=== PATIENT | female | born 1955 | race Caucasian/White ===

== ENCOUNTER → 2016-08-23 | Outpatient (CLI) | payer BC ==
[~2016-08-23] MED LIST: ASPCH81X PO; CALC-51 PO; CHOL1TAB42 PO; FLAX1CAP11 PO; FMR25 PO; HYZ/50125 PO; MISCCAP80 PO; MULT-506 PO; PROTANDIM PO
[2016-08-23 11:26] LABS: CHOLESTEROL 245 mg/dl (0-200); CHOLESTEROL/HDL RATIO 2.6; HDL CHOLESTEROL 93 mg/dl; TRIGLYCERIDES 141 mg/dl (0-150); VERY LOW DENSITY LIPOPROT CALC 28 mg/dl
== END | disposition home or self-care (01) ==
LOC: C.LAB 09:48
PROVIDERS: ATTEND Internal Medicine
DX: I10 Essential (primary) hypertension (principal); E78.5 Hyperlipidemia, unspecified; M85.80 Other specified disorders of bone density and structure, unspecified site; Z13.89 Encounter for screening for other disorder

== ENCOUNTER → 2017-01-02 | Outpatient (CLI) | payer BC | END | disposition home or self-care (01) | LOC: C.MAMM 07:58 | PROVIDERS: ATTEND Nurse Practitioner Family | DX: C50.919 Malignant neoplasm of unspecified site of unspecified female breast (principal); M85.89 Other specified disorders of bone density and structure, multiple sites ==

== ENCOUNTER → 2017-02-11 | Outpatient (CLI) | payer BC ==
[2017-02-11 18:34] LABS: BLOOD UREA NITROGEN 21 mg/dl (7-18); BUN/CREATININE RATIO 29.4 (10-20); CARBON DIOXIDE 28 mmol/L (21-32); CHLORIDE 103 mmol/L (98-107); GLUCOSE 115 mg/dl (70-99); POTASSIUM 3.4 mmol/L (3.5-5.1); SODIUM 137 mmol/L (136-145)
== END | disposition home or self-care (01) ==
LOC: C.LABSPEC 17:23
PROVIDERS: ATTEND Internal Medicine
DX: Z01.818 Encounter for other preprocedural examination (principal); I10 Essential (primary) hypertension

== ENCOUNTER → 2017-03-31 | Outpatient (CLI) | payer BC | END | disposition home or self-care (01) | LOC: C.PAPS 13:31 | PROVIDERS: ATTEND Obstetrics & Gynecology | DX: Z01.419 Encounter for gynecological examination (general) (routine) without abnormal findings (principal) ==

== ENCOUNTER → 2017-05-21 | Outpatient (CLI) | payer BC | END | disposition home or self-care (01) | LOC: C.PAPS 09:24 | PROVIDERS: ATTEND Physician Assistant | DX: R87.625 Unsatisfactory cytologic smear of vagina (principal) ==

== ENCOUNTER → 2017-06-03 | Outpatient (CLI) | payer BC ==
[2017-06-03 09:37] LABS: BASO % 0.4 %; BASO ABS # 0.02 K/uL (0-0.2); COMPLETE YES; EOS % 5.2 %; HEMATOCRIT 38.3 % (37-47); IG% 0.2 %; LYMPH % 21.3 %; LYMPH ABS # 1.19 K/uL (1.2-3.4); MEAN CELL VOLUME 89.7 fL (80-100); MEAN CORPUSCULAR HEMOGLOBIN 31.4 pg (25-34); MEAN PLATELET VOLUME 9.4 fL (7.4-10.4); MONO % 12.2 %; NEUT % 60.7 %; PLATELET COUNT 244 K/uL (130-400); RED BLOOD COUNT 4.27 M/uL (4.2-5.4); WHITE BLOOD COUNT 5.58 K/uL (4.8-10.8)
[2017-06-03 10:24] LABS: ALT/SGPT 23 U/L (12-78); AST/SGOT 18 U/L (15-37); BLOOD UREA NITROGEN 17 mg/dl (7-18); BUN/CREATININE RATIO 27.5 (10-20); CALCIUM 8.7 mg/dl (8.5-10.1); CARBON DIOXIDE 30 mmol/L (21-32); CHLORIDE 105 mmol/L (98-107); CREATININE 0.62 mg/dl (0.60-1.20); GLUCOSE 99 mg/dl (70-99); POTASSIUM 3.4 mmol/L (3.5-5.1); SODIUM 138 mmol/L (136-145); TRIGLYCERIDES 72 mg/dl (0-150); VERY LOW DENSITY LIPOPROT CALC 14 mg/dl
[2017-06-03 10:25] LABS: ALKALINE PHOSPHATASE 72 U/L (45-117); CHOLESTEROL 196 mg/dl (0-200); CHOLESTEROL/HDL RATIO 2.2; HDL CHOLESTEROL 90 mg/dl
== END | disposition home or self-care (01) ==
LOC: C.LAB 07:44
PROVIDERS: ATTEND Internal Medicine Hematology & Oncology
DX: C50.919 Malignant neoplasm of unspecified site of unspecified female breast (principal); E78.5 Hyperlipidemia, unspecified; E55.9 Vitamin D deficiency, unspecified

== ENCOUNTER 2017-07-01 20:19 | Emergency (ER) | payer BC ==
[~2017-07-01] VITALS: Ht 162.6 cm; Wt 67.0 kg
[2017-07-01 20:38] VITALS: TEMP 36.9; Ht 162.6 cm; Wt 67.0 kg
[2017-07-01] MEDS ORDERED: XYLOCAINE 1%/SOD BICARB 20 ML VIAL INFIL ONE (20:45)
[2017-07-01] MEDS ORDERED: DIPHTHERIA/TETANUS/PERTUSSIS 0.5 ML SYR/VIAL IM. ONE (20:45)
[2017-07-01 22:14] VITALS: BP 145/78; PULSE 64; O2SAT 96
[2017-07-01] MEDS ORDERED: ASPI81TA28 PO (22:20)
[2017-07-01] MEDS ORDERED: POTA1CAP2 PO (22:20)
[2017-07-01] MEDS ORDERED: CALC-393 PO (22:20)
[2017-07-01] MEDS ORDERED: TURM1CAP4 PO (22:20)
--- NOTE | 2017-07-02 00:22 | EMERGENCY ROOM VISIT NOTE ---
History First contact with patient: 20:31 Chief Complaint: LACERATION/CUT (SUT/DERMABOND) Stated Complaint: LACERATION TO THUMB Nursing Triage Summary: Patient ambulatory to triage with an upright and steady gait, states "I was reaching for a spoon out of the dish water. I cut myself on a knife in the sink on my right thumb." History of Present Illness The patient is a 61 year old female who presents to the Emergency Room with complaints of a laceration to the right thumb. The patient reports that she was reaching into her kitchen sink for a spoon that fell into the trash compactor. It kicked back and flipped a knife into her thumb, causing laceration. The patient denies any significant bleeding, and rates her discomfort a 3 out of 10. She denies any paresthesias or numbness of the fingertip. The patient is [id number]. Review of Systems 6 system review was performed and was negative except for pertinent positives and negatives as indicated in history of present illness Past Medical/Surgical History Medical Problems: (1) Breast cancer (2) DCIS (ductal carcinoma in situ) of breast (3) Melanoma Family History Unremarkable Social History Smoking Status: Former Smoker Alcohol Use: occasionally Marital Status: Occupation Status: employed Current/Historical Medications Scheduled Aspirin (Aspirin Ec), 81 MG PO DAILY Calcium Carbonate (Calcium), 600 MG PO BID Cholecalciferol (Vitamin D), 5,000 INTER.UNIT PO QAM Flaxseed (Linseed) (Flax Seed Oil), 1 CAP PO QAM Hctz/Losartan (Hyzaar 12.5MG/50MG), 1 TAB PO QAM Letrozole (Femara), 2.5 MG PO QAM Multivitamin (Multivitamin), 1 TAB PO QAM Potassium Chloride (Potassium Chloride Er), 1 CAP PO BID Turmeric (Curcuma Longa) (Turmeric), 500 MG PO DAILY Physical Exam Vital Signs Date Time Temp Pulse Resp B/P (MAP) Pulse Ox O2 Delivery O2 Flow Rate FiO2 07/01/17 22:14 64 18 145/78 96 Room Air 07/01/17 20:38 36.9 76 20 143/83 97 Room Air Physical Exam CONSTITUTIONAL: Healthy and well nourished. Alert and oriented X 3 with positive affect. MUSCULOSKELETAL: Examination of the right thumb shows a 2.5 cm curvilinear laceration without active bleeding. The laceration does not involve the nail. Capillary refill is less than 2 seconds. INTEGUMENTARY: No rash or other significant dermatologic conditions noted. NEUROLOGIC: Right thumb tip is sensory intact. Medical Decision & Procedures Medications Administered Medications (Trade) Dose Ordered Sig/Scooter Route Start Time Stop Time Status Last Admin Dose Admin Diphtheria/ Pertussis/Tetanus Vacc (Adacel Inj) 0.5 ml ONCE ONCE IM. 07/01/17 20:45 07/01/17 20:46 DC 07/01/17 21:07 0.5 ML Procedure Laceration repair was performed under digital block anesthesia after receiving verbal consent from the patient. Using buffered 1% lidocaine without epinephrine, good digital block anesthesia was administered. The wound was then peripherally cleansed with iodine, then irrigated with normal saline. Exploration of the wound does not show any obvious involvement of the underlying bone. The wound was then approximated using 5-0 nylon simple interrupted sutures. A bacitracin dressing was applied. The patient tolerated the procedure well with minimal bleeding. ED Course Patient history and physical exam were performed. Nurse's notes were reviewed. Vital signs were reviewed and were normal. The patient was administered Adacel IM. Laceration repair was performed under digital block anesthesia. The patient was provided additional verbal and written wound care instructions. Ice and elevation as needed for swelling. Ibuprofen or Tylenol if needed for additional pain relief. Suture removal in 2 weeks, or seek reevaluation sooner for any signs of wound infection. The patient was happy with plan of care, voiced understanding of all discharge instructions, and denied any pain at the conclusion of my exam. Medical Decision Medication Reconcilliation Current Medication List: was personally reviewed by me Blood Pressure Screening Patient's blood pressure: Normal blood pressure Impression Primary Impression: Laceration of right thumb Departure Information Dispostion Home / Self-Care Condition GOOD Forms HOME CARE DOCUMENTATION FORM, IMPORTANT VISIT INFORMATION Patient Instructions [facility] Additional Instructions Keep wound clean and dry. Do not allow any crusting or dried blood to accumulate on sutures. If this occurs, use a 1:1 solution of hydrogen peroxide/ water on a Q-tip to clean the wound. Use an antibiotic ointment for 3-4 days, then let wound dry. Suture removal in 12-14 days. Return sooner for any signs of infection (increasing redness, swelling, drainage). Ice and elevate for swelling and pain. Ibuprofen 600 mg and/or Tylenol 1000 mg every 6-8 hrs as needed for pain. Problem Qualifiers Primary Impression: Laceration of right thumb Encounter type: initial encounter Damage to nail status: without damage Foreign body presence: without foreign body Qualified Codes: S61.011A - Laceration without foreign body of right thumb without damage to nail, initial encounter
== END 2017-07-01 22:16 | disposition home or self-care (01) ==
LOC: C.EDB 20:20 → C.EDD 22:16
DX: S61.011A Laceration without foreign body of right thumb without damage to nail, initial encounter (principal); W26.0XXA Contact with knife, initial encounter; Z23 Encounter for immunization; Z85.3 Personal history of malignant neoplasm of breast; Z85.820 Personal history of malignant melanoma of skin; Z87.891 Personal history of nicotine dependence; Z79.82 Long term (current) use of aspirin

== ENCOUNTER → 2017-07-18 | Outpatient (CLI) | payer BC ==
[~2017-07-18] MED LIST changes: -ASPCH81X PO; +ASPI81TA28 PO; +CALC-393 PO; -CALC-51 PO; -MISCCAP80 PO; +POTA1CAP2 PO; -PROTANDIM PO; +TURM1CAP4 PO
--- NOTE | 2017-07-18 15:29 | DIAGNOSTIC IMAGING REPORT ---
TWO VIEW CHEST CLINICAL HISTORY: Cough. FINDINGS: PA and lateral chest radiographs are correlated with chest CT dated 04/07/2015. The cardiomediastinal silhouette is unremarkable. Chronic interstitial thickening similar to previous. The lungs and pleural spaces are clear. There is no pneumothorax. The skeletal structures are osteopenic. The bony thorax appears intact. Bilateral breast implants are noted. Surgical clips are noted in the left axilla. IMPRESSION: No active disease in the chest. Electronically signed by: Aníbal Julien M.D. 07/18/2017 3:27 PM Dictated Date/Time: 07/18/2017 3:25 PM
== END | disposition home or self-care (01) ==
LOC: C.RAD 15:01
PROVIDERS: ATTEND Dermatology
DX: R05 Cough (principal)

== ENCOUNTER → 2017-08-18 | Outpatient (CLI) | payer BC | END | disposition home or self-care (01) | LOC: C.RDSM 09:45 | PROVIDERS: ATTEND Physical Medicine & Rehabilitation Sports Medicine | DX: M17.0 Bilateral primary osteoarthritis of knee (principal) ==

== ENCOUNTER 2017-10-15 06:28 | Inpatient (IN) | payer BC ==
[2017-10-06 10:04] VITALS: BMI 26.0
--- NOTE | 2017-10-06 10:52 | PAT Medication Instructions ---
Service Date Oct 06, 2017. Current Home Medication List Aspirin (Aspirin Ec), 81 MG PO QPM Calcium Carbonate (Calcium), 600 MG PO BID Cholecalciferol (Vitamin D), 5,000 INTER.UNIT PO QAM Fish Oil ([place]-3), 1 CAP PO QAM Flaxseed (Linseed) (Flax Seed Oil), 1 CAP PO QAM Hctz/Losartan (Hyzaar 12.5MG/50MG), 1 TAB PO QAM Letrozole (Femara), 2.5 MG PO QAM Multivitamin (Multivitamin), 1 TAB PO QAM Potassium Chloride (Potassium Chloride Er), 1 CAP PO BID Turmeric (Curcuma Longa) (Turmeric), 500 MG PO QPM Medication Instructions For Your Scheduled Surgery -Check with your prescriber for instructions for: Letrozole (Femara), 2.5 MG PO QAM - Hold the following medications 2 weeks prior to surgery: Fish Oil ([place]-3), 1 CAP PO QAM Flaxseed (Linseed) (Flax Seed Oil), 1 CAP PO QAM Turmeric (Curcuma Longa) (Turmeric), 500 MG PO QPM - Hold the following medications the morning of surgery: Calcium Carbonate (Calcium), 600 MG PO BID Cholecalciferol (Vitamin D), 5,000 INTER.UNIT PO QAM Hctz/Losartan (Hyzaar 12.5MG/50MG), 1 TAB PO QAM Multivitamin (Multivitamin), 1 TAB PO QAM Potassium Chloride (Potassium Chloride Er), 1 CAP PO BID - Take the following medications as scheduled the night before surgery: Aspirin (Aspirin Ec), 81 MG PO QPM Calcium Carbonate (Calcium), 600 MG PO BID Potassium Chloride (Potassium Chloride Er), 1 CAP PO BID If you have any questions please call us at [phone] or [phone] or [phone]
[2017-10-06 11:12] LABS: BASO % 0.8 %; BASO ABS # 0.05 K/uL (0-0.2); EOS % 8.6 %; EOS ABS # 0.52 K/uL (0-0.5); HEMATOCRIT 39.8 % (37-47); HEMOGLOBIN 13.9 g/dL (12.0-16.0); LYMPH % 28.9 %; LYMPH ABS # 1.74 K/uL (1.2-3.4); MEAN CELL VOLUME 88.4 fL (80-100); MEAN CORPUSCULAR HEMOGLOBIN 30.9 pg (25-34); MEAN CORPUSCULAR HGB CONC 34.9 g/dl (32-36); MEAN PLATELET VOLUME 9.2 fL (7.4-10.4); MONO ABS # 0.48 K/uL (0.11-0.59); NEUT % 53.7 %; NEUT ABS # 3.23 K/uL (1.4-6.5); PLATELET COUNT 275 K/uL (130-400); RED CELL DISTRIBUTION WIDTH CV 13.5 % (11.5-14.5); RED CELL DISTRIBUTION WIDTH SD 43.6 fL (36.4-46.3); WHITE BLOOD COUNT 6.02 K/uL (4.8-10.8)
[2017-10-06 11:20] LABS: PTT PATIENT 25.2 SECONDS (21.0-31.0)
[2017-10-06 11:21] LABS: CALCIUM 9.2 mg/dl (8.5-10.1); CREATININE 0.62 mg/dl (0.60-1.20); POTASSIUM 3.5 mmol/L (3.5-5.1)
--- NOTE | 2017-10-13 15:42 | HISTORY & PHYSICAL EXAMINATION ---
DATE OF ADMISSION: 10/15/2017 CHIEF COMPLAINT: Left knee pain. HISTORY OF PRESENT ILLNESS: This 61-year-old white female presents with complaints of left knee pain that has been ongoing for several years. It has become worse with time. She states she did try physical therapy as well as viscosupplementation without lasting improvement. Pain persists. It is worse with weightbearing. It is affecting her ADLs. She elects to proceed with surgical intervention in hopes of alleviating her pain. Preoperative imaging has been obtained. No specific trauma. Pain is primarily medial. She does note some nighttime pain. No intraarticular effusions. PAST MEDICAL HISTORY: Significant for hypertension, osteoarthritis, history of melanoma, breast cancer, trigger digits, heartburn, and elevated cholesterol. PREVIOUS SURGERIES: Right foot fusion, right foot bone spur excision, double mastectomy, melanoma excision, right rotator cuff repair. ALLERGIES: NKDA. CURRENT MEDICATIONS: Amlodipine 5 mg p.o. daily, aspirin 81 mg p.o. daily, calcium daily, fish oil daily, Femara daily, HCTZ/losartan 25 mg/100 mg p.o. daily, Klor-Con 10 mEq daily, multivitamin daily, Vitamin D3 daily. FAMILY HISTORY: Significant for breast cancer, skin cancer, ovarian cancer, heart disease, hypertension, and lung cancer. SOCIAL HISTORY: The patient is . No tobacco use, quit in 2012. Occasional ETOH use. REVIEW OF SYSTEMS: Significant for above-stated conditions, otherwise unremarkable. PHYSICAL EXAMINATION: GENERAL: Well-developed, well-nourished middle-aged white female, in no acute distress. Looks younger than her stated age. Sitting on a bed. Alert and oriented. SKIN: Warm and dry with good turgor. No rashes or lesions. No ecchymosis or erythema. No intraarticular effusion. HEENT: Normocephalic, atraumatic. EYES: PERRLA. EOMI. Nares patent bilaterally without turbinate enlargement. Oropharynx without erythema or exudate. No lesions noted. Uvula midline. Oral mucosa moist. Good dentition. HEART: RRR. No MGR. LUNGS: Clear to auscultation bilaterally. No crackles, rhonchi or wheezing. Good air movement. ABDOMEN: Mildly obese. Bowel sounds present x4, soft, nontender. No organomegaly. No masses. MUSCULOSKELETAL: Left knee has no intra-articular effusion. No redness or warmth. Supple motion. Full terminal extension. Flexion to greater than 100 degrees. She has focal discomfort with palpation over the medial joint line. There is also peripatellar discomfort. No lateral joint line discomfort today. Stable collateral ligaments. No defect in the patellar tendon or quadriceps tendon. Ambulatory with a normal gait. NEUROLOGIC: Gross sensation is intact across both lower extremities by soft touch. Peripheral pulses are 2+. Cranial nerves II-XII are intact. DATA: Radiographic imaging previously obtained shows lateral subluxation as well as patellofemoral arthritis. Periarticular osteophytes and medial joint space narrowing are present. Subchondral sclerosis is also present. IMPRESSION: Left knee degenerative joint disease. PLAN: Postoperative prescriptions for Percocet and Coumadin will be provided at discharge from the hospital. Anticipate discharge to home with home health services for 2 weeks and then outpatient PT. She already has a walker. Preoperative lab work, EKG, and chest x-ray have been ordered. Medical clearance was requested from her PCP, Dr. Quiñones.
[2017-10-15] VITALS (8 sets, daily range): BP systolic 96–124; BP diastolic 61–95; PULSE 53–75; TEMP 36.4–36.8; O2SAT 96–100; Ht 162.6 cm; Wt 68.4 kg
[~2017-10-15] VITALS: Ht 162.6 cm; Wt 68.4 kg
[~2017-10-15 06:28] MED LIST changes: +CEFAZOLIN 2000MG IV PUSH 15 ML IV SCH; +LACTATED RINGER'S 1000ML 1,000 ML IV SCH; +LACTATED RINGER'S 1000ML IV SCH; +OMEG10007 PO; +ROPIVACAINE 5MG/ML 30 ML 150 MG, BUPIVACAINE 0.5% MPF INJ 30 ML, EpINEphrine HCL INJ 0.... INFIL SCH; +TRANEXAMIC ACID INJ 1,000 MG x 1 Bag Preop IV SCH
[2017-10-15] MEDS ORDERED: ROPIVACAINE 0.5% 5 MG/ML 30 ML VIAL ONE (06:36)
[2017-10-15] MEDS ORDERED: BUPIVACAINE 0.5 % 5 MG/1 ML PF 10ML VIAL ONE (06:36)
--- NOTE | 2017-10-15 06:50 | History & Physical Bridge Note ---
H&P Re-Evaluation Bridge Note: I have examined the patient, reviewed the History & Physical and in the interval since the performance of the History & Physical I have noted the following changes of clinical significance: consent obtained.No changes noted
[2017-10-15] MEDS ORDERED: LIDOCAINE HCL 2% 2 ML VIAL (20MG/ML) ONE (07:16)
[2017-10-15] MEDS ORDERED: PROPOFOL IV EMULSION 10 MG/ML 20 ML VIAL IV ONE ×2 (07:16→10:00)
[2017-10-15] MEDS ORDERED: MIDAZOLAM HCL 1 MG/ML 2ML VIAL ONE ×2 (07:17→09:02)
[2017-10-15] MEDS ORDERED: FENTANYL CITRATE INJ 50 MCG/1 ML 2 ML VIAL ONE (07:17)
[2017-10-15] MEDS ORDERED: POVIDONE-IODINE OP SOLN 30 ML BTL ONE (08:38)
[2017-10-15] MEDS ORDERED: ORTHO JOINT ANESTHETIC ONE (08:38)
[2017-10-15] MEDS ORDERED: ONDANSETRON INJ 2 MG/ML 2 ML VIAL ONE (09:39)
--- NOTE | 2017-10-15 10:24 | [facility] Post Operative Brief Note ---
Immediate Operative Summary Operative Date Oct 15, 2017. Pre-Operative Diagnosis Left Knee Degenerative Joint Disease Post-Operative Diagnosis Left Knee Degenerative Joint Disease Procedure(s) Performed Left Total Knee Arthroplasty Surgeon [facility] Coordinator Surgeon(s) Dr. Guzman (Fellow)/BIRD Casanova Estimated Blood Loss 50 ml Findings Consistent with Post-Op Diagnosis Fluids (cc crystalloids) 1300cc Specimens A. Left Knee Bone and Tissue Drains None Anesthesia Type MAC Spinal Regional Complication(s) none Disposition Accompanied Pt To Recover: no Disposition: Recovery Room / PACU
--- NOTE | 2017-10-15 10:43 | [facility] Operative Report ---
Operative Report Operative Date Oct 15, 2017. Pre-Operative Diagnosis Left Knee Degenerative Joint Disease Post-Operative Diagnosis Left Knee Degenerative Joint Disease Procedure(s) Performed Left Total Knee Arthroplasty Surgeon Dr. Melendez Colli[facility] Clerk Surgeon(s) Dr. Guzman (Fellow)/BIRD Fiore Estimated Blood Loss 50 ml Findings Left knee DJD Fluids 1300cc Specimens A. Left Knee Bone and Tissue Drains None Anesthesia Type MAC Spinal Regional Complication(s) none Disposition no Recovery Room / PACU Indications This 61-year-old white female presented to the office with complaints of intractable left knee pain. She had tried conservative care measures including oral anti-inflammatories, cortisone injections, Visco supplementation, and activity modification, without improvement. She elected to proceed with surgical intervention after being educated about potential risks and outcomes. Preoperative imaging was obtained. Description of Procedure Patient was given a spinal anesthetic and then taken to the operating room where she was given sedation. She was prepped and draped in usual sterile fashion. Please see Dr. Melendez's operative report for specifics of the procedure. I was present for the entire case from initial patient positioning through final wound closure. Assistance was provided in tissue retraction, hemostasis, trial implant placement, final implant placement, and final wound closure. Patient was taken to the recovery room in satisfactory condition. I attest to the content of the Intraoperative Record and any orders documented therein. Any exceptions are noted below.
[2017-10-15] MEDS ORDERED: ACETAMINOPHEN IV 100 ML IV PRN (10:45)
[2017-10-15] MEDS ORDERED: ONDANSETRON INJ 2 MG/ML 2 ML VIAL IV PRN ×2 (10:45→11:15)
[2017-10-15] MEDS ORDERED: MoRPHine SULFATE 2 MG/ML CARP IV PRN (10:45)
[2017-10-15] MEDS ORDERED: BISACODYL 10 MG SUPP PR PRN (10:45)
[2017-10-15] MEDS ORDERED: METOCLOPRAMIDE HCL INJ 5 MG/ML 2 ML VIAL IV PRN (10:45)
[2017-10-15] MEDS ORDERED: MAGNESIUM HYDROXIDE SUSP 30 ML UDC PO PRN (10:45)
[2017-10-15] MEDS ORDERED: ALUMINUM/MAGNESIUM/SIMETH (MAALOX MAX) 30 ML UDC PO PRN (10:45)
--- NOTE | 2017-10-15 10:58 | DIAGNOSTIC IMAGING REPORT ---
TWO VIEWS LEFT KNEE CLINICAL HISTORY: Postoperative examination. FINDINGS: AP and crosstable lateral portable views of the left knee are obtained. A left knee arthroplasty is in near anatomic alignment. There has been undersurface remodeling of the patella. No acute fracture is seen. There are expected postoperative changes around the knee including skin clips, soft tissue edema, and subcutaneous gas. IMPRESSION: Expected postoperative changes status post left knee arthroplasty. No acute fracture is seen. Electronically signed by: Aníbal Julien M.D. 10/15/2017 10:57 AM Dictated Date/Time: 10/15/2017 10:57 AM
--- NOTE | 2017-10-15 10:59 | OPERATIVE REPORT ---
DATE OF OPERATION: 10/15/2017 SURGEON: Dionisio Melendez MD WEATHER ANALYST: Thomas SECOND TRIAGE LICENSED PRACTICAL NURSE: Brayden Horton PA-C PREOPERATIVE DIAGNOSIS: Osteoarthritis of left knee, primary component, patellofemoral, and lateral compartment. POSTOPERATIVE DIAGNOSIS: Osteoarthritis of left knee, primary component, patellofemoral, and lateral compartment. OPERATION PERFORMED: Cemented left total knee replacement. SUMMARY OF IMPLANTS: Size 2 left posterior cruciate substituting femur, size 2 rotating tibial platform tray, size 2 insert, 10 mm thick posterior cruciate substituting oval dome 3 peg patella size 35, 2 bags of Palacos G cement. ESTIMATED BLOOD LOSS: 50 mL. CRYSTALLOID: 1300 mL. DVT PROPHYLAXIS: With Coumadin. PATHOLOGY: Bone pathology pending. PERIOPERATIVE SITUATION: A medically cleared female with intractable knee pain, has been followed for decades, at this point in time, wants to proceed with surgical treatment. X-rays reveal end-stage disease particularly patellofemoral joint and lateral compartment. OPERATION: The patient was appropriately identified, site verified, consent verified, 2 g of Ancef confirmed as being given. The left lower extremity was prepped and draped in usual routine fashion. There was no major flexion contracture. The tourniquet was inflated to 300 mmHg after exsanguination of limb with a rubber Esmarch bandage for a total of about 55 minutes. Midline exposure utilized. Parapatellar arthrotomy was performed. Osteophytes were resected. Synovectomy was completed. Grade 4 disease of the entire patella and trochlea, grade 3 disease of the entire lateral compartment with a grade 4 spot on the weightbearing surface of both the tibia and the femur. The medial compartment was relatively healthy. The distal femur was then entered on the centralizing drill bit after the cruciates were resected. The tibia was subluxatable. The distal femur was then resected 12 mm. The proximal tibia was resected 4 mm. The extension gap was excellent. The femur was sized between a 2.5 and 2, so it was measured 2.5, cut 2. There was no notching. This did require one revision of the chamfer cut to get the trial implant to fit later on. The flexion gap was excellent. The box cut was then made and the size 2 trial wound not quite fit well, so the chamfer cut was revised and then the size 2 trial fit very well. The tibia was subluxated and then sized to a 2 and was broached and reamed for a size 2 with appropriate rotation. Then the 10 mm spacer fit well and had excellent extension, mid range, and full flexion stability. The patella tracked well. The patella was sized to a 35 and was resected leaving about 15 mm. The seating holes made and the trial tracked and fit well. The area was then injected with the Orthomix. The wound was then irrigated with Betadine. All the implants were removed, irrigated with Betadine Pulsavac, and then the permanents cemented into position. After 12 minutes, the tourniquet deflated. After 14 minutes, the knee flexed. No cement needed to be removed. The wound was irrigated with Betadine Pulsavac and the permanent liner seated. The knee was reduced and closed with #2 Vicryl, #1 Vicryl, 2-0 Vicryl, and stainless steel clips. Appropriate dressing was applied. The patient was transferred to recovery room in satisfactory condition having tolerated the procedure well. DVT prophylaxis with Coumadin. I attest to the content of the Intraoperative Record and any orders documented therein. Any exception s are noted below.
[2017-10-15] MEDS ORDERED: EpHEDrine SULFATE INJ 50 MG/ML AMP IV PRN (11:15)
[2017-10-15] MEDS ORDERED: LABETALOL HCL IV 5 MG/ML 20ML IV PRN (11:15)
[2017-10-15] MEDS ORDERED: MEPERIDINE HCL 25 MG/ML CARP IV PRN (11:15)
[2017-10-15] MEDS ORDERED: ATROPINE SULFATE 0.1 MG/ML 5ML SYR IV PRN (11:15)
[2017-10-15] MEDS ORDERED: HYDROmorphone INJ 0.5 MG/0.5 ML SYR IV PRN (11:15)
[2017-10-15] MEDS ORDERED: FENTANYL CITRATE INJ 50 MCG/1 ML 2 ML VIAL IV PRN (11:15)
--- NOTE | 2017-10-15 11:22 | PROGRESS NOTE ---
DATE: 10/15/2017 Postop status post left total knee replacement. The patient seen in the PACU area. She is comfortable. Her block is still in place. Wound dressing clean, dry and intact. Denies chest pain, shortness of breath, fever, chills, nausea, vomiting or headache. Postop x-rays, AP and lateral knee look excellent. ASSESSMENT: Doing well with left knee replacement. Continue care pathway. Mobilize JASPREET.
[2017-10-15] MEDS ORDERED: D5W AND 1/2NSS + 20MEQ KCL 1,000 ML IV SCH (12:15)
[2017-10-15] MEDS ORDERED: MoRPHine SULFATE 4 MG/ML 1 ML CARP\\VIAL IV PRN (12:15)
--- NOTE | 2017-10-15 12:31 | Anesthesiology Progress Note ---
Anesthesia Post Op Note Date & Time Oct 15, 2017 at 12:30 Vital Signs Pain Intensity: 0.0 Vital Signs Past 12 Hours Date Time Temp Pulse Resp B/P (MAP) Pulse Ox O2 Delivery O2 Flow Rate FiO2 10/15/17 12:15 36.5 53 15 119/76 (90) 100 Nasal Cannula 2.0 10/15/17 11:35 36.4 64 18 96/61 (73) 99 Nasal Cannula 2.0 10/15/17 11:35 Nasal Cannula 2.0 10/15/17 11:35 Room Air 10/15/17 11:20 36.5 56 16 95/56 97 Nasal Cannula 2 10/15/17 11:10 36.5 57 14 95/59 99 Nasal Cannula 2 10/15/17 11:00 53 14 94/56 97 Nasal Cannula 2 10/15/17 10:50 56 20 92/58 96 Nasal Cannula 2 10/15/17 10:40 66 16 96/58 98 Nasal Cannula 2 10/15/17 10:34 36.4 66 16 98/50 98 Nasal Cannula 2 10/15/17 07:17 36.8 60 18 124/95 97 Room Air Notes Mental Status: alert / awake / arousable, participated in evaluation Pt Amnestic to Procedure: Yes Nausea / Vomiting: adequately controlled Pain: adequately controlled Airway Patency, RR, SpO2: stable & adequate BP & HR: stable & adequate Hydration State: stable & adequate Neuraxial Anesthesia: was administered, sensory block is resolving Anesthetic Complications: no major complications apparent
[2017-10-15] MEDS: FERROUS GLUCONATE 324 MG TAB PO SCH ×2 (14:07→17:32)
[2017-10-15] MEDS: KETOROLAC TROMETHAMINE 15 MG/ML VIAL IV. SCH ×2 (14:08→20:33)
[2017-10-15] MEDS: ACETAMINOPHEN 500 MG TAB PO SCH ×2 (14:08→21:32)
[2017-10-15] MEDS ORDERED: WARFARIN SOD 5 MG TAB PO SCH (16:00)
[2017-10-15] MEDS ORDERED: TRANEXAMIC ACID INJ 1,000 MG in SODIUM CHLORIDE 0.9% 100ML 100 ML IV SCH (16:30)
[2017-10-15] MEDS: CEFAZOLIN IV 1,000 MG in SYRINGE 0 ML IV SCH (17:18)
--- NOTE | 2017-10-15 19:31 | PROGRESS NOTE ---
DATE: 10/15/2017 Postop check, doing well, status post left total knee. Eating well. Denies chest pain, shortness of breath, fever, chills, nausea, vomiting or headache. Neurovascular check is normal. Has good motor function. Good sensory function. Continue with care pathway. Hep-Lock IV.
[2017-10-15] MEDS: POTASSIUM CHLORIDE 10 MEQ TABCR PO SCH (20:33)
[2017-10-15] MEDS: DOCUSATE SODIUM 100 MG CAP PO SCH (20:33)
[2017-10-15] MEDS ORDERED: SENNA 8.6 MG TAB PO SCH (21:00)
[2017-10-16] MEDS: CEFAZOLIN IV 1,000 MG in SYRINGE 0 ML IV SCH (01:36)
[2017-10-16] MEDS: KETOROLAC TROMETHAMINE 15 MG/ML VIAL IV. SCH ×3 (01:36→12:53)
[2017-10-16 03:10] VITALS: BP 102/65; PULSE 60; TEMP 36.7; O2SAT 99
[2017-10-16] MEDS: ACETAMINOPHEN 500 MG TAB PO SCH ×2 (05:22→12:55)
[2017-10-16] MEDS: OXYCODONE HCL IR 5 MG TAB (IMMEDIATE RELEASE) PO PRN ×2 (05:22→13:20)
[2017-10-16 06:47] LABS: HEMATOCRIT 33.6 % (37-47); HEMOGLOBIN 11.4 g/dL (12.0-16.0); MEAN CELL VOLUME 88.4 fL (80-100); MEAN CORPUSCULAR HGB CONC 33.9 g/dl (32-36); MEAN PLATELET VOLUME 9.3 fL (7.4-10.4); PLATELET COUNT 224 K/uL (130-400); RED CELL DISTRIBUTION WIDTH CV 13.1 % (11.5-14.5); RED CELL DISTRIBUTION WIDTH SD 42.2 fL (36.4-46.3); WHITE BLOOD COUNT 9.96 K/uL (4.8-10.8)
[2017-10-16] MEDS ORDERED: DEXAMETHASONE INJ 10 MG in SYRINGE 0 ML IV ONE (07:30)
[2017-10-16 07:31] LABS: CALCIUM 8.5 mg/dl (8.5-10.1); CREATININE 0.64 mg/dl (0.60-1.20); POTASSIUM 3.5 mmol/L (3.5-5.1)
[2017-10-16 07:58] VITALS: BP 116/76; PULSE 56; TEMP 36.7; O2SAT 98
[2017-10-16] MEDS ORDERED: WARF2TAB PO (08:18)
[2017-10-16] MEDS ORDERED: OXYC-57 PO (08:18)
--- NOTE | 2017-10-16 08:21 | Discharge Instructions ---
Discharge Instructions Date of Service Oct 16, 2017. Admission Reason for Admission: Left Knee Degenerative Joint Disease Discharge Discharge Diagnosis / Problem: left knee s/p total knee replacement Discharge Goals Goal(s): Decrease discomfort, Improve function, Increase independence Activity Recommendations Activity Limitations: as noted below Lifting Limitations: gradually increase as tolerated Exercise/Sports Limitations: until after follow-up appointment Shower/Bathe: keep incision dry Driving or Machine Use: No driving until cleared by Dr. Melendez Weightbearing Status: Left weightbearing (as tolerated) . Instructions / Follow-Up Instructions / Follow-Up New Medicine: * You will likely be taking one or more of these medications: 1. Percocet - Take, as directed, when you need it, every four to six hours to control your pain. 2. Coumadin - Thins your blood to lessen the chance of forming a blood clot. The dose of this is different for each person and is based on your blood tests that are done twice a week. * The most common side effects of pain medicine and iron are nausea and constipation. If nausea or constipation is too much of a problem or if you have any questions about your new medicines or doses, call [facility] at . We will try to help you manage these issues. VERY IMPORTANT TO READ AND REVIEW" Blood Clots and Blood Thinning Medicine: * You are given Coumadin during the immediate post-operative period to lessen the risk of blood clots forming in your legs and/or lungs. Coumadin is usually given for six weeks after surgery. * The prescription is for 2 mg tablets. At discharge, you should understand your dose and take it all at the same time every day, preferably after dinner. * You need to get your blood checked 1 - 2 times per week for six weeks or as directed. * If your dose needs to change, we will call you. Do not take your medication on the day of the blood test until we call you. Pain: * The immediate post-operative period after knee replacement surgery is often quite painful. * You are given a prescription for pain medicine. You should take it, as directed, when you need it, especially before physical therapy and before going to bed. Pain that interferes with sleep is very common and can last several months. * You will likely need pain medicine for the first four to six weeks. It will not stop all of the pain. The pain will lessen and as you feel better, you may change to milder pain medicine such as Tylenol. * The most common side effects of pain medicine are nausea and constipation, so don't take more than you need. Physical Therapy: * You will have physical therapy two or three times each week for four to six weeks after your surgery in order to regain your knee range of motion and to retrain your knee to work properly. * It is just as important to make sure you are getting your knee perfectly straight as it is to regain your knee bend. * Taking a pain pill an hour before therapy can help you have a more productive and comfortable therapy session if needed. Home Exercise: * You were shown a series of exercises (heel props, heel slides, etc.) in the hospital. Do these exercises three to four times each day including the exercises you were shown in physical therapy. Walking: * Get up and walk several times each day. For the first four weeks, try not to stand or walk for more than one hour at a time. If you do stand or walk for more than one hour, you will not hurt anything, but your knee and leg will likely swell. * As you feel comfortable, you may change from the walker or crutches to a cane and then to independent walking. SELF CARE INSTRUCTIONS AFTER TOTAL KNEE REPLACEMENT A. You may need to continue a physical therapy program after discharge from the hospital. There are several options available to you. Your doctor will assist you in selecting the best one for you. 1. An out-patient facility 2 to 3 times a week for therapy or home therapy. 2. Continue working on all exercises taught to you in the hospital. Your goals should be to increase bending of your knee to 90 degrees and beyond and to fully straighten your knee. B. You may progress at your own pace from walking with a walker or crutches to a cane; then to no assistive devices. C. Make walking a part of your daily routine. Be up as much as comfortable with rest periods throughout the day. Rest with leg elevation is very important. Use the ice wrap frequently for the first 3-4 weeks. D. There are no restrictions on activities. You may ride in a car, shop, participate in polisher and buffer and all social activities. E. Wear the long elastic stockings (WALKER hose) 20 hours a day for six weeks after surgery. They can be removed several times a day for laundering and for a shower. F. Do not place a pillow behind your knee when resting. A pillow at your ankle is okay. VERY IMPORTANT TO READ AND REVIEW A. Take Coumadin, Aspirin or Lovenox (blood thinning medications) as directed by your doctor. If on Coumadin, have a pro-time (blood test) drawn according to your doctor's instructions. This will tell the doctor how well the Coumadin is thinning your blood. 1. YOU WILL BE GIVEN AN ORDER AT DISCHARGE FOR PT/INR (BLOOD WORK). PLEASE HAVE THIS DONE INSTRUCTED. PLEASE CALL OUR OFFICE AFTER YOUR BLOODWORK IS COMPLETE SO WE CAN TRACK YOUR RESULTS. IF YOU ARE GOING TO OUTPATIENT PHYSICAL THERAPY, YOU WILL NEED TO GO TO OUTPATIENT TESTING TO HAVE IT DRAWN. B. There are a few signs you need to watch for after you are home. Call [facility] if you notice any of the followin. Increased severe knee pain. Some pain is expected especially when you exercise. 2. Increased swelling in your leg or knee; pain or swelling of the calf muscle in either lower leg. 3. Any fluid drainage from the incision. 4. Shortness of breath or chest pain. C. Please call [facility] at if you have any concerns or questions about your operation or recovery. The doctor or his nurse will return your call promptly. D. You must take antibiotics before dental work, bladder, bowel or other surgery. Call the office to obtain a prescription at least 2 days prior to your appointment. * CALL IF INCREASED PAIN, REDNESS, DRAINAGE OR FEVER GREATER THAT 101. * Sutures should be removed 12-14 days after surgery unless you are on chronic steriods, then it will be 14-18 days after surgery. Call your doctor if: * Temperature above 101 degrees F. * Pain not relieved by pain medicine ordered. * Increased drainage or redness from incision. * Notify your doctor with any questions or concerns. Current Hospital Diet Patient's current hospital diet: Regular Diet Discharge Diet Recommended Diet: Regular Diet Procedures Procedures Performed: Left Total Knee Arthroplasty Pending Studies Studies pending at discharge: no Medical Emergencies . Who to Call and When: Medical Emergencies: If at any time you feel your situation is an emergency, please call 911 immediately. . Non-Emergent Contact Non-Emergency issues call your: Primary Care Provider, Surgeon Call Non-Emergent contact if: temperature is above 101, wound has increased drainage, wound has increased redness, wound has increased pain, you have any medication questions . "Provider Documentation" section prepared by Brayden Horton PA-C. . [place] Drug Monitoring Program Search Results: no issues identified
[2017-10-16] MEDS: FERROUS GLUCONATE 324 MG TAB PO SCH ×2 (08:40→12:54)
[2017-10-16] MEDS: DOCUSATE SODIUM 100 MG CAP PO SCH (08:41)
[2017-10-16] MEDS: POTASSIUM CHLORIDE 10 MEQ TABCR PO SCH (08:41)
[2017-10-16] MEDS ORDERED: LOSARTAN/HCTZ 50-12.5 EA TAB PO SCH (09:00)
[2017-10-16] MEDS ORDERED: LETROZOLE 2.5 MG TAB PO SCH (09:00)
[2017-10-16] MEDS ORDERED: MULTIVITAMIN TAB PO SCH (09:00)
[2017-10-16] MEDS ORDERED: PANTOprazole SOD 40 MG TAB PO SCH (09:00)
--- NOTE | 2017-10-16 09:18 | Orthopedic Progress Note ---
Orthopedic Progress Note Date of Service Oct 16, 2017. Subjective Post OP Day: 1 Reports: feeling well, pain controlled w PO medications, Denies: complaints, chest pain, SOB, nausea / vomiting, light headedness, calf pain Additional Notes: States she surprised at how well she is doing. Feels great. Ambulating around her room. Objective calves soft nontender, N/V intact, capillary refill less than 2 sec., dressing C /D/I, incision C/D/I, A&O x3, toes mobile Incision with joslyn retained. Mild distal edema left foot. Distal pulses 1+ , brisk cap refill. Date Time Temp Pulse Resp B/P (MAP) Pulse Ox O2 Delivery O2 Flow Rate FiO2 10/16/17 07:58 36.7 56 16 116/76 (89) 98 Room Air 10/16/17 03:10 36.7 60 16 102/65 (77) 99 Room Air 10/15/17 22:46 36.7 64 16 99/64 (76) 96 Room Air 10/15/17 20:23 36.7 70 16 105/74 (84) 96 Room Air 10/15/17 19:30 Room Air 10/15/17 15:14 36.8 75 16 119/78 (92) 96 Room Air 10/15/17 13:26 36.7 59 18 100/64 (76) 96 Room Air 10/15/17 12:40 36.8 62 16 113/77 (89) 96 Room Air 10/15/17 12:15 36.5 53 15 119/76 (90) 100 Nasal Cannula 2.0 10/15/17 12:00 Nasal Cannula 2.0 10/15/17 11:35 36.4 64 18 96/61 (73) 99 Nasal Cannula 2.0 10/15/17 11:35 Nasal Cannula 2.0 10/15/17 11:35 Room Air 10/15/17 11:20 36.5 56 16 95/56 97 Nasal Cannula 2 10/15/17 11:10 36.5 57 14 95/59 99 Nasal Cannula 2 10/15/17 11:00 53 14 94/56 97 Nasal Cannula 2 10/15/17 10:50 56 20 92/58 96 Nasal Cannula 2 10/15/17 10:40 66 16 96/58 98 Nasal Cannula 2 10/15/17 10:34 36.4 66 16 98/50 98 Nasal Cannula 2 Laboratory Results 24 Hours: Test 10/16/17 05:53 Hematocrit 33.6 % Hemoglobin 11.4 g/dL Prothromb Time International Ratio 1.0 Prothrombin Time 10.9 SECONDS Assessment & Plan Assessment: POD 1 - s/p Left TKA Plan: H/H stable. On coumadin for DVT prophylaxis. Tolerating regular diet. PT/OT today. Dressings changed and WALKER applied LLE. Continue Ice/elevation as needed for left knee. WBAT LLE with use of a walker or crutches. Discharge to home today with out patient PT. Discharge Planning Discharge Planning: home with oppt Pain Management: Percocet DVT Prophylaxis: TEDs, Coumadin Therapy: Physical Therapy
[2017-10-16 11:30] VITALS: BP 128/72; PULSE 58; TEMP 36.6; O2SAT 96
[2017-10-16] MEDS ORDERED: WARFARIN SOD 5 MG TAB PO ONE (16:00)
--- NOTE | 2017-10-17 04:57 | DISCHARGE SUMMARY ---
PRIMARY CARE DOCTOR: Cristino Quiñones MD CONSULTING PHYSICIAN: None. CONDITION ON DISCHARGE: Stable. DISCHARGE DIAGNOSIS: Left knee status post total knee arthroplasty. PROCEDURE: Left knee total knee arthroplasty on 10/15/2017. HISTORY OF PRESENT ILLNESS: This 61-year-old white female presented to the office with complaints of left knee pain that had been ongoing for several years. It became worse with time and was affecting her ADLs. She did try physical therapy as well as alternative treatments without lasting improvement. She elected to proceed with total knee arthroplasty in hopes of alleviating her pain. Preoperative imaging was obtained. PAST MEDICAL HISTORY: Significant for hypertension, osteoarthritis, history of melanoma, breast cancer, trigger digits, heartburn, and elevated cholesterol. PAST SURGICAL HISTORY: Right foot fusion, right foot bone spur excision, double mastectomy, melanoma excision, right rotator cuff repair. ALLERGIES: NKDA. FAMILY HISTORY: Significant for breast cancer, skin cancer, ovarian cancer, heart disease, hypertension, and lung cancer. SOCIAL HISTORY: The patient is . No tobacco use, quit in 2012. Occasional ETOH use. HOSPITAL COURSE: The patient was admitted through same day surgery on 10/15/2017. She underwent successful left knee total knee arthroplasty and was taken to the recovery room in satisfactory condition. The rest of the afternoon and evening was uneventful. She did very well postoperatively and had good pain control with oral and IV medication. She was able to ambulate that evening with the assistance of nursing staff. She was rechecked in the morning of 10/16/2017 and was found to be doing well. She was able to ambulate in the moeller and did ambulate 250 feet under supervision of her physical therapist. Dressings were changed and the wound looked excellent. She felt ready for discharge. Vitals remained stable. LABORATORIES: Postoperative labs showed hemoglobin of 11.4, hematocrit 33.6, INR 1.0 with PT 10.9. Sodium 138, potassium 3.5, chloride 106, BUN 14, creatinine 0.64. FOLLOWUP APPOINTMENT: The patient has an appointment for staple removal 10/30/2017 at 10:00 a.m. with physical therapy to follow. DISCHARGE MEDICATIONS: Percocet 5/325 mg 1-2 tablets every 4 hours as needed, Coumadin 4 mg daily, aspirin 81 mg q. p.m., calcium 600 mg p.o. b.i.d., vitamin D 5000 units p.o. daily, flaxseed oil 1 capsule daily, HCTZ/losartan 12.5 mg/50 mg p.o. q.a.m., Femara 2.5 mg p.o. q.a.m., multivitamin daily, potassium chloride p.o. b.i.d., Turmeric 500 mg p.o. q.p.m. She will stop her fish oil. DISCHARGE INSTRUCTIONS: The patient was instructed to ambulate. No flexion of the left knee beyond 90 degrees. Start physical therapy in 2 weeks. Appointment has been made. Written postoperative instructions were provided to the patient. She will keep the dressings clean, dry, and intact. Continue her WALKER hose for the next 6 weeks. Have her INR checked on Friday as an outpatient.
== END 2017-10-16 15:04 | disposition home or self-care (01) | DRG 470 ==
LOC: C.ACU 06:28 → C.3E 06:29 → ENRESERV 11:05
PROVIDERS: ADMIT Physical Medicine & Rehabilitation Sports Medicine; ATTEND Physical Medicine & Rehabilitation Sports Medicine
PROC: 0SRD0J9 Replacement of Left Knee Joint with Synthetic Substitute, Cemented, Open Approach (ICD-10-PCS; principal; 2017-10-15 09:00)
DX: M17.12 Unilateral primary osteoarthritis, left knee (principal); I10 Essential (primary) hypertension; E78.00 Pure hypercholesterolemia, unspecified; Z51.81 Encounter for therapeutic drug level monitoring; Z79.899 Other long term (current) drug therapy; Z79.82 Long term (current) use of aspirin; Z85.3 Personal history of malignant neoplasm of breast; Z85.820 Personal history of malignant melanoma of skin; Z87.891 Personal history of nicotine dependence; Z80.3 Family history of malignant neoplasm of breast; Z80.1 Family history of malignant neoplasm of trachea, bronchus and lung; Z82.49 Family history of ischemic heart disease and other diseases of the circulatory system; Z80.8 Family history of malignant neoplasm of other organs or systems; Z80.41 Family history of malignant neoplasm of ovary